=== PATIENT | female | born 1955 ===

== ENCOUNTER 2022-09-04 10:00 | Inpatient (IN) | payer OTHER ==
[~2022-09-04] VITALS: Ht 157.5 cm; Wt 54.4 kg
[2022-09-04] MEDS ORDERED: PROCAR PO (14:43)
[2022-09-04] MEDS ORDERED: HYDROCHLOROTHIA25 MG PO (14:44)
[2022-09-11] MEDS ORDERED: BANOPHEN25 MG (08:30)
[2022-09-11] MEDS ORDERED: LISINOPRIL5 MG (08:30)
[2022-09-11] MEDS ORDERED: NIFEDIPINE ER30 M1 (08:30)
[2022-09-11] MEDS ORDERED: SPIRONOLACTONE50 MG (08:30)
[2022-09-11] MEDS ORDERED: PANTOPRAZOLE SO40 MG (08:30)
[2022-09-13] MEDS ORDERED: ACETAMINOPHEN500 M2 PO (12:16)
[2022-09-13] MEDS ORDERED: NEURONTIN300 MG PO (12:16)
== END 2022-09-13 13:46 | disposition home or self-care (01) | DRG 330 ==
LOC: O/R 09-10 07:26 → SURH 09-10 07:26 → SURG 09-10 10:00 → SURH 09-10 17:02
PROVIDERS: ADMIT Surgery; ATTEND Surgery
PROC: 0DBP4ZZ Excision of Rectum, Percutaneous Endoscopic Approach (ICD-10-PCS; 2022-09-10)
PROC: 0DTN4ZZ Resection of Sigmoid Colon, Percutaneous Endoscopic Approach (ICD-10-PCS; 2022-09-10)
PROC: 07BB4ZZ Excision of Mesenteric Lymphatic, Percutaneous Endoscopic Approach (ICD-10-PCS; 2022-09-10)
PROC: 07BC4ZZ Excision of Pelvis Lymphatic, Percutaneous Endoscopic Approach (ICD-10-PCS; 2022-09-10)
PROC: 0DJD8ZZ Inspection of Lower Intestinal Tract, Via Natural or Artificial Opening Endoscopic (ICD-10-PCS; 2022-09-10)
PROC: 3E0F7SF Introduction of Other Gas into Respiratory Tract, Via Natural or Artificial Opening (ICD-10-PCS; 2022-09-10)
PROC: 0D1B4Z4 Bypass Ileum to Cutaneous, Percutaneous Endoscopic Approach (ICD-10-PCS; principal; 2022-09-10 14:30)
DX: C20 Malignant neoplasm of rectum (principal); K62.5 Hemorrhage of anus and rectum; R59.0 Localized enlarged lymph nodes; K59.09 Other constipation

== ENCOUNTER 2023-01-28 09:17 | Inpatient (IN) | payer OTHER ==
[~2023-01-28] VITALS: Ht 157.5 cm; Wt 45.8 kg
[~2023-01-28 09:17] MED LIST: ACETAMINOPHEN500 M2 PO; BANOPHEN25 MG; HYDROCHLOROTHIA25 MG PO; LISINOPRIL5 MG; NEURONTIN300 MG PO; NIFEDIPINE ER30 M1; PANTOPRAZOLE SO40 MG; PROCAR PO; SPIRONOLACTONE50 MG
[2023-01-28] MEDS ORDERED: PROCARD PO (13:32)
[2023-01-30] MEDS ORDERED: NIFEDIPINE ER30 M1 (08:55)
[2023-02-15] MEDS ORDERED: INTESTINEX680 M1 PO (11:04)
[2023-02-15] MEDS ORDERED: LEVSIN/SL0.125 MG SL (11:04)
[2023-02-15] MEDS ORDERED: GAS RELIEF125 MG PO (11:04)
== END 2023-02-15 13:41 | disposition home or self-care (01) | DRG 348 ==
LOC: SURH 01-29 15:10 → SURG 01-31 11:00 → SURH 02-15 13:41
PROVIDERS: Surgery; ADMIT Internal Medicine; ATTEND Internal Medicine
PROC: 4A12X4Z Monitoring of Cardiac Electrical Activity, External Approach (ICD-10-PCS; 2023-01-29)
PROC: BT43ZZZ Ultrasonography of Bilateral Kidneys (ICD-10-PCS; 2023-01-30)
PROC: 30233N1 Transfusion of Nonautologous Red Blood Cells into Peripheral Vein, Percutaneous Approach (ICD-10-PCS; 2023-02-04)
PROC: 0DBB4ZZ Excision of Ileum, Percutaneous Endoscopic Approach (ICD-10-PCS; principal; 2023-02-07 14:00)
PROC: 0D9670Z Drainage of Stomach with Drainage Device, Via Natural or Artificial Opening (ICD-10-PCS; 2023-02-11)
DX: C20 Malignant neoplasm of rectum (principal); E87.0 Hyperosmolality and hypernatremia; N17.8 Other acute kidney failure; K62.5 Hemorrhage of anus and rectum; E86.9 Volume depletion, unspecified; E87.5 Hyperkalemia; E86.0 Dehydration; I12.9 Hypertensive chronic kidney disease with stage 1 through stage 4 chronic kidney disease, or unspecified chronic kidney disease; N18.30 Chronic kidney disease, stage 3 unspecified; Z43.2 Encounter for attention to ileostomy; K66.0 Peritoneal adhesions (postprocedural) (postinfection); E83.51 Hypocalcemia; E83.42 Hypomagnesemia; K91.0 Vomiting following gastrointestinal surgery; D64.89 Other specified anemias